=== PATIENT | male | born 1985 | race Caucasian/White ===

== ENCOUNTER 2019-04-22 10:30 | Emergency (ER) | payer MEDICAID, OTHER ==
[2019-04-22 10:41] VITALS: BP 127/80
--- NOTE | 2019-04-22 11:09 | UC ---
Skin Complaint HPI - HPI Summary HPI Summary: well 34 yo with 5 to 6 day hx of penile nodule which is mildly tender. He has had a new sexual partner for the past 3 months who has a history of herpes. He has no hx of STI's. Currently no discharge from penis or dysuria. Not consistently using condoms --left med malleolus and right dorsum of foot with ringworm x months. He has been treating with topical terbinafine without resolution. 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 - History of Current Complaint Chief Complaint: UCSkin Time Seen by Provider: 04/22/19 11:06 Stated Complaint: PERSONAL/ SKIN ISSUE Hx Obtained From: Patient Onset/Duration: Gradual Onset Skin Exposure Onset/Duration: Weeks Ago Timing: Constant Onset Severity: Mild Current Severity: Mild Pain Intensity: 0 Location: Foot (Right), Foot (Left) Character: Pruritus Aggravating Factor(s): Nothing Alleviating Factor(s): OTC Meds Associated Signs & Symptoms: Positive: Negative - Allergy/Home Medications Allergies/Adverse Reactions: Allergies Allergy/AdvReac Type Severity Reaction Status Date / Time nickel Allergy Rash Verified 04/22/19 10:42 wasp Allergy Swelling Uncoded 04/22/19 10:42 Of Face,Lips,& Throat PMH/Surg Hx/FS Hx/Imm Hx Previously Healthy: Yes - Surgical History Surgical History: Yes Surgery Procedure, Year, and Place: appendectomy. right wrist surgery - Family History Known Family History: Positive: None - Social History Alcohol Use: Daily Substance Use Type: None Smoking Status (MU): Never Smoked Tobacco Review of Systems All Other Systems Reviewed And Are Negative: Yes Constitutional: Positive: Negative Skin: Positive: Rash Genitourinary: Negative: Dysuria, Hematuria, Vaginal/Penile Discharge, Vaginal/ Penile Pain, Ulceration/Lesion Motor: Positive: Negative Neurovascular: Positive: Negative Is Patient Immunocompromised?: No Physical Exam Triage Information Reviewed: Yes Appearance: Well-Appearing, No Pain Distress Vital Signs: Initial Vital Signs Temp 97 F 04/22/19 10:38 Pulse 73 04/22/19 10:38 Resp 16 04/22/19 10:38 BP 127/80 04/22/19 10:38 Pulse Ox 100 04/22/19 10:38 ENT: Positive: Normal ENT inspection Neck: Positive: Supple, Nontender, No Lymphadenopathy Respiratory: Positive: Lungs clear, Normal breath sounds Male Genital Exam: Positive: Normal Genitalia, No Hernia, Lesions - has 2mm raised white nodule consistent with mucous cyst, no erytehma or ulceration on left lateral mid shaft of penis. Negative: Epididymal Tenderness, Erythema Musculoskeletal Exam: Normal Neurological Exam: Normal Neurological: Positive: Alert Skin Exam: Other - left lateral malleolus with 4 cm faint circular area; right dorsum of foot with 4.5 cm of erytehma and scale, margin of erythema Course/Dx - Course Course Of Treatment: econazole for tinea corporis screening for GC, Chlamydia and HIV anticipate self resolution of mucous cyst on penis. - Differential Diagnoses - Skin Complaint Differential Diagnoses: Tinea - Diagnoses Provider Diagnosis: Tinea corporis, Screening for STD (sexually transmitted disease) Discharge ED - Sign-Out/Discharge Documenting (check all that apply): Patient Departure All imaging exams completed and their final reports reviewed: No Studies - Discharge Plan Condition: Good Disposition: HOME Prescriptions: Econazole 1% CREAM (NF) [Econazole 1 % CREAM (NF)] 1 applic TOPICAL BID #30 gm Patient Education Materials: Tinea Corporis (ED) Referrals: No Primary Care Phys,NOPCP [Primary Care Provider] - Additional Instructions: For ringworm: massage the cream in well twice daily, anticipating that it will take about 3 to 4 weeks to resolve. The results of Chlamydia and gonorrhea will be available in 2 to 3 days; we will call to treat if positive. HIV testing can take several days, and you will receive those results from the lab. - Billing Disposition and Condition Condition: GOOD Disposition: Home
[2019-04-23 12:50] LABS: Chlamydia trachomatis NAA Negative (Negative); Neisseria gonorrhoeae (GC) NAA Negative (Negative)
== END 2019-04-22 11:50 | disposition home or self-care (01) ==
LOC: UCEAST 10:30
DX: B35.4 Tinea corporis (principal); Z11.3 Encounter for screening for infections with a predominantly sexual mode of transmission
CPT/HCPCS: 87491; 87591; 99212; G0463

== ENCOUNTER 2019-06-13 15:03 | Emergency (ER) | payer MEDICAID, OTHER ==
--- NOTE | 2019-06-13 15:10 | UC ---
Skin Complaint HPI - HPI Summary HPI Summary: 34 yo male presents with rash to feet. He was seen here on 04/22 for the same issue and was dx'd with tinea and prescribed ketoconazole cream. He has been using this as directed and symptoms were improving, but there were a few days where he stopped using the medication because he forgot or became too busy. He rash returned and is worse on the right foot. He is noticing small similar appearing lesions on his right thigh that are itchy. Denies fever, chills, or pain. - History of Current Complaint Time Seen by Provider: 06/13/19 15:10 Stated Complaint: RASH ON FEET Hx Obtained From: Patient Onset/Duration: Gradual Onset Onset Severity: Mild Current Severity: Mild Pain Intensity: 2 Pain Scale Used: 0-10 Numeric - Allergy/Home Medications Allergies/Adverse Reactions: Allergies Allergy/AdvReac Type Severity Reaction Status Date / Time nickel Allergy Rash Verified 06/13/19 15:19 PMH/Surg Hx/FS Hx/Imm Hx - Additional Past Medical History Additional PMH: None - Surgical History Surgical History: Yes Surgery Procedure, Year, and Place: appendectomy. right wrist surgery - Family History Known Family History: Positive: None - Social History Occupation: Employed Full-time Lives: With Family Alcohol Use: Daily Substance Use Type: None Smoking Status (MU): Never Smoked Tobacco Review of Systems All Other Systems Reviewed And Are Negative: No Constitutional: Positive: Negative Skin: Positive: Rash Respiratory: Positive: Negative Cardiovascular: Positive: Negative Neurovascular: Positive: Negative Neurological: Positive: Negative Psychological: Positive: Negative Physical Exam - Summary Physical Exam Summary: GENERAL: NAD. WDWN. No pain distress. SKIN: RIGHT FOOT: Dorsal midfoot with 6.0cm oval patch of scaling hyperpigmentated skin that is raw appearing. LEFT FOOT: Medial aspect with similar appearing site as right foot, but two ovals 2.5cm in size each. RIGHT THIGH and b/l forearms with 1-2mm diameter similar appearing lesions. No areas are draining, edematous, or tender. NECK: Supple. Nontender. No lymphadenopathy. CHEST: No accessory muscle use. Breathing comfortably and in no distress. CV: Pulses intact. Cap refill <2seconds NEURO: Alert. PSYCH: Age appropriate behavior. Triage Information Reviewed: Yes Vital Signs: Vital Signs: Temp Pulse Resp BP Pulse Ox 98 F 98 17 128/73 100 06/13/19 15:14 06/13/19 15:14 06/13/19 15:14 06/13/19 15:14 06/13/19 15:14 Vital Signs Reviewed: Yes Course/Dx - Course Course Of Treatment: Agree with previous dx of tinea. Given spreading infection and worsening condition of foot rash, will rx for oral terbinafine and refill ketoconazole cream. Recommend f/u with dermatology to ensure resolution. - Diagnoses Provider Diagnosis: Tinea pedis Discharge ED - Sign-Out/Discharge Documenting (check all that apply): Patient Departure All imaging exams completed and their final reports reviewed: No Studies - Discharge Plan Condition: Stable Disposition: HOME Prescriptions: Ketoconazole 2 % CREAM (NF) [Nizoral 2% CREAM (NF)] 1 applic TOPICAL DAILY #1 tube Terbinafine HCl 250 mg PO BID #28 tablet Patient Education Materials: Tinea Corporis (ED), Tinea Versicolor (ED) Referrals: No Primary Care Phys,NOPCP [Primary Care Provider] - Corin Neal [Medical Doctor] - As Soon As Possible Additional Instructions: If you develop a fever, shortness of breath, chest pain, new or worsening symptoms - please call your PCP or go to the ED immediately. Take the terbinafine 250mg TWICE a day for 14 days Use the ketoconazole cream twice a day for 14 days and keep the feet covered with a non-stick bandage when wearing your boots I recommend that you call Dermatology now at the number below to schedule an appointment in 2-4 weeks for a recheck. If your symptoms have resolved - may cancel this appointment - Billing Disposition and Condition Condition: STABLE Disposition: Home
[2019-06-13 15:18] VITALS: BP 128/73
== END 2019-06-13 15:55 | disposition home or self-care (01) ==
LOC: UCEAST 15:03
DX: B35.3 Tinea pedis (principal); Z91.09 Other allergy status, other than to drugs and biological substances
CPT/HCPCS: 99212; G0463